=== PATIENT | male | born 1965 ===

== ENCOUNTER 2020-10-31 17:44 | Emergency (ER) | payer SELFPAY ==
[~2020-10-31] VITALS: Ht 175.3 cm; Wt 90.0 kg
[2020-10-31] MEDS ORDERED: PLEASE ENTER HEIGHT AND WEIGHT MC SCH (18:00)
[2020-10-31] MEDS ORDERED: PLEASE ENTER ALLERGIES MC SCH (18:00)
[2020-10-31] MEDS ORDERED: LORazepam 2 MG/ML, 1ML IVPush ONE (18:00)
[2020-10-31] MEDS ORDERED: SODIUM CHLORIDE FLUSH 10ML SYR IVF ONE (18:00)
--- NOTE | 2020-10-31 18:01 | NUR ---
PT PLACED ON ALL ROOM MONITORING. LAB DRAWN, PCXR COMPLETED. CALL LIGHT WITHIN REACH.
[2020-10-31] MEDS ORDERED: ONDANSETRON 2MG/ML, 2ML ONE (18:03)
[2020-10-31] MEDS ORDERED: LORazepam 2 MG/ML, 1ML ONE (18:03)
[2020-10-31 18:24] LABS: TROPONIN I < 0.015 ng/mL (0.000-0.045)
[2020-10-31 18:36] LABS: BASOPHILS % (AUTO) 0 % (0-1); EOSINOPHILS % (AUTO) 0 % (1-7); LYMPHOCYTES % (AUTO) 8 % (22-44); MEAN CORPUSCULAR HEMOGLOBIN 33.5 pg (27.5-34.5); MEAN CORPUSCULAR HGB CONC 35.3 g/dL (33.2-36.2); MEAN PLATELET VOLUME 6.9 fL (7.4-10.4); MONOCYTES % (AUTO) 3 % (2-9); NEUTROPHILS % (AUTO) 89 % (42-75); PLATELET COUNT 266 x10^3/uL (130-400); RED BLOOD COUNT 5.34 x10^6/uL (4.38-5.82); RED CELL DISTRIBUTION WIDTH 13.3 % (9.4-14.8)
[2020-10-31 18:42] LABS: ALBUMIN 3.7 g/dL (3.4-5.0); ANION GAP 9 mmol/L (5-15); CALCIUM 8.7 mg/dL (8.5-10.1); CHLORIDE 107 mmol/L (98-107); CREATININE 0.94 mg/dL (0.7-1.3)
--- NOTE | 2020-10-31 18:42 | NUR ---
PT RESTING, EYES CLOSED, FEELING BETTER AFTER ATIVAN. PT INFORMED OF NEG TROP AND ADD ON ORDER FOR CTA. CALL LIGHT WITHIN REACH.
--- NOTE | 2020-10-31 19:29 | NUR ---
PT TO CT.
[2020-10-31] MEDS ORDERED: OMNIPAQUE 350 MG/ML, 100ML BOTTLE ONE (19:52)
--- NOTE | 2020-10-31 20:08 | NUR ---
REPEAT TROPONIN DRAWN/RESULT PENDING.
[2020-10-31 20:29] LABS: TROPONIN I < 0.015 ng/mL (0.000-0.045)
[2020-10-31] MEDS ORDERED: ENALAPRILAT 1.25 MG/ML, 2ML IV ONE (20:30)
[2020-10-31] MEDS ORDERED: ENALAPRILAT 1.25 MG/ML, 1ML ONE (20:41)
[2020-10-31 20:45] VITALS: BP 162/104
== END 2020-10-31 21:04 | disposition home or self-care (01) ==
LOC: ED 21:00
DX: R07.2 Precordial pain (principal); I10 Essential (primary) hypertension; Z77.098 Contact with and (suspected) exposure to other hazardous, chiefly nonmedicinal, chemicals
CPT/HCPCS: 36415; 71045; 71275; 80048; 82040; 84484; 85025; 93005; 96374; 96375; 99285; J2060; Q9967